=== PATIENT | female | born 1940 | race Caucasian/White ===

== ENCOUNTER → 2017-12-13 | Outpatient (CLI) | payer MEDICARE, OTHER ==
--- NOTE | 2017-12-13 12:12 | RAD ---
Chest, 2 views, 12/13/2017: History: Chest congestion Comparison is made to a study from 11/26/2013. There is unchanged marked elevation of the right hemidiaphragm. The heart size is normal. There is calcific plaquing of the aorta. No pulmonary infiltrate is seen. There is no evidence of pleural fluid. IMPRESSION: 1. Chronic elevation of the right hemidiaphragm. 2. No acute cardiopulmonary abnormality is detected.
== END | disposition home or self-care (01) ==
LOC: PMG 11:41
PROVIDERS: ATTEND Physician Assistant Medical
DX: R09.89 Other specified symptoms and signs involving the circulatory and respiratory systems (principal)
CPT/HCPCS: 71046

== ENCOUNTER → 2018-01-08 | Outpatient (CLI) | payer MEDICARE, OTHER ==
--- NOTE | 2018-01-08 12:57 | RAD ---
Chest, 2 views, 01/08/2018: History: Cough Comparison is made to a study from 12/13/2017. There is chronic elevation of the right hemidiaphragm which is unchanged. There is minimal underlying linear atelectasis or scarring. The heart size and pulmonary vascularity are normal. There is calcific plaquing of the aorta. No acute infiltrate is seen. There is no evidence of pleural fluid. IMPRESSION: 1. Chronic elevation of the right hemidiaphragm. 2. No acute cardiopulmonary abnormality is detected.
== END | disposition home or self-care (01) ==
LOC: PMG 10:52
PROVIDERS: ATTEND Nurse Practitioner Family
DX: R05 Cough (principal); J98.6 Disorders of diaphragm
CPT/HCPCS: 71046

== ENCOUNTER → 2018-06-25 | Outpatient (CLI) | payer MEDICARE, OTHER ==
--- NOTE | 2018-06-25 13:49 | RAD ---
Left foot radiograph 06/25/2018 11:57 AM INDICATION: Left foot pain COMPARISON: None available. TECHNIQUE: 3 views of the left foot are provided. FINDINGS: There is no acute fracture or dislocation. There is joint space narrowing involving the tarsometatarsal articulations with some chondral cystic changes. Plantar calcaneal enthesophyte is noted. There is joint space narrowing involving interphalangeal joints. Regional soft tissues are within normal limits. Bone mineralization is within normal limits. IMPRESSION: No acute fracture or dislocation. Moderate osteoarthrosis of the midfoot, primarily involving the tarsometatarsal articulations. Electronically signed by: Alyx Hamilton MD (06/25/2018 1:46 PM) [id number]
== END | disposition home or self-care (01) ==
LOC: PMG 11:36
PROVIDERS: ATTEND Neuromusculoskeletal Medicine & OMM
DX: M19.072 Primary osteoarthritis, left ankle and foot (principal)
CPT/HCPCS: 73630

== ENCOUNTER → 2019-08-14 | Outpatient (CLI) | payer MEDICARE, OTHER ==
--- NOTE | 2019-08-14 16:05 | RAD ---
3 view study of both feet Clinical indications: Bilateral foot pain. Osteoarthritis. Left foot: No acute fracture or dislocation or lytic process is seen. Small plantar spur the calcaneus is seen. There is the degenerative dorsal spurring of the first tarsal metatarsal joint. No erosive arthropathy is evident. Right foot: No acute fracture or lytic process is seen. There is mild medial subluxation of the second proximal phalanx with respect to the second metatarsal bone. This may be due to ligament laxity from arthritis or old trauma. Small plantar spur of the calcaneus is evident. There is degenerative dorsal spurring of the first tarsal metatarsal joint. There is mild degenerative spurring of the first metatarsal phalangeal joint. IMPRESSION: No acute fracture. Bilateral heel spurs. See discussion above. Electronically signed by: Lit Cervantes MD (08/14/2019 4:02 PM) [id number]
== END | disposition home or self-care (01) ==
LOC: DXRAD 11:02
PROVIDERS: ATTEND Podiatrist Foot & Ankle Surgery
DX: S93.144A Subluxation of metatarsophalangeal joint of right lesser toe(s), initial encounter (principal); M77.32 Calcaneal spur, left foot; M77.31 Calcaneal spur, right foot; X58.XXXA Exposure to other specified factors, initial encounter; Y93.89 Activity, other specified; Y92.89 Other specified places as the place of occurrence of the external cause; Y99.8 Other external cause status
CPT/HCPCS: 73630

== ENCOUNTER → 2020-12-22 | Outpatient (CLI) | payer MEDICARE, OTHER ==
--- NOTE | 2020-12-22 18:57 | RAD ---
EXAM: XR CHEST 2V INDICATION: Reason: SHORTNESS OF BREATH x2 WEEKS, PARALYZED RIGHT HEMIDIAPHRAGM / Spl. Instructions: / History: . TECHNIQUE: PA and lateral views COMPARISON: 01/08/2018 chest x-ray FINDINGS: The heart size is normal. The great vessels appear unremarkable. There is no hilar or mediastinal mass. Lungs show increased conspicuity of the central pulmonary vascular markings. No pneumothorax or pleural effusion is identified but there is persistent right diaphragmatic elevati on. There are no significant osseous abnormalities. IMPRESSION: Evidence of slight increase in pulmonary vascular markings and persistent right diaphragmatic elevati on. Electronically signed by: Jose Armando Lopez MD (12/22/2020 6:55 PM) [id number]
== END ==
LOC: PMG 13:56
PROVIDERS: ATTEND Physician Assistant Medical
DX: R06.02 Shortness of breath (principal)
CPT/HCPCS: 71046